=== PATIENT | female | born 1955 | race Caucasian/White ===

== ENCOUNTER → 2018-10-29 13:26 | Outpatient (CLI) | payer OTHER, SELFPAY ==
--- NOTE | 2018-10-29 13:29 | DI.RAD.S_ITS ---
PROCEDURE: XR KNEE LT 3V INDICATIONS: left knee injury TECHNIQUE: 3 views of the knee were acquired. COMPARISON: None. FINDINGS: Bones: There is a nondisplaced vertical fracture identified involving the lateral aspect of the patella. Normal positioning of the patella is evident. No additional fractures are seen. The bone mineralization is within normal limits. No suspicious osseous lesions are identified. Soft tissues: There is a very large joint effusion. Prepatellar soft tissue edema is noted. No suspicious soft tissue calcifications. IMPRESSION: 1. Nondisplaced patella fracture. 2. Prominent knee joint effusion. Dictated by: Sandoval Klein M.D. on 10/29/2018 at 13:09 Approved by: Sandoval Klein M.D. on 10/29/2018 at 13:10
== END ==
PROVIDERS: PCP Family Medicine; Visit Provider Physician Assistant
DX: S82.092A Other fracture of left patella, initial encounter for closed fracture (principal); M25.462 Effusion, left knee
CPT/HCPCS: 73562

== ENCOUNTER → 2019-01-29 08:52 | Outpatient (CLI) | payer OTHER, SELFPAY ==
[2019-01-29 11:04] LABS: Hep C Virus Ab w/Reflex Quant NEGATIVE s/c (NEGATIVE)
== END ==
DX: Z13.29 Encounter for screening for other suspected endocrine disorder (principal); Z13.228 Encounter for screening for other metabolic disorders; Z13.0 Encounter for screening for diseases of the blood and blood-forming organs and certain disorders involving the immune mechanism
CPT/HCPCS: 36415; 86803

== ENCOUNTER → 2019-03-02 15:16 | Outpatient (CLI) | payer OTHER, SELFPAY ==
--- NOTE | 2019-03-02 | DI.MG.S_ITS ---
BILATERAL DIGITAL SCREENING MAMMOGRAM 3D/2D WITH CAD: 03/02/2019 CLINICAL: Routine screening. Comparison is made to exams dated: 12/09/2016 mammogram, 11/12/2015 mammogram, and 11/01/2014 mammogram - [facility]. The tissue of both breasts is heterogeneously dense. This may lower the sensitivity of mammography. Current study was also evaluated with a Computer Aided Detection (CAD) system. No significant masses, calcifications, or other findings are seen in either breast. There has been no significant interval change. IMPRESSION: NEGATIVE There is no mammographic evidence of malignancy. A 1 year screening mammogram is recommended. This exam was interpreted at Station ID: [id number]. NOTE: For mammograms, a report in lay terms will be sent to the patient. Approximately 15% of breast malignancies will not be visualized mammographically. In the management of a palpable breast mass, a negative mammogram must not discourage biopsy of a clinically suspicious lesion. Electronically Signed By: Virginia arnold/[email or web address]:03/02/2019 16:02:48 letter sent: Normal Exam ACR BI-RADS Category 1: Negative [id number]
== END ==
PROVIDERS: Visit Provider Family Medicine
DX: Z12.31 Encounter for screening mammogram for malignant neoplasm of breast (principal)
CPT/HCPCS: 77063; 77067

== ENCOUNTER → 2021-10-25 13:04 | Outpatient (ROUT) | payer OTHER, SELFPAY ==
[2021-10-25 13:22] LABS: Appearance Urine UA CLOUDY; Bilirubin Urine UA NEGATIVE (NEGATIVE); Color Urine UA YELLOW; Glucose Urine UA NEGATIVE (Negative); Ketones Urine UA NEGATIVE (NEGATIVE); Leukocyte Esterase Urine UA 2+ (NEGATIVE); Nitrite Urine UA NEGATIVE (Negative); Occult Blood Urine UA 1+ (Negative); Protein Urine UA 1+ (Negative); Specific Gravity Urine UA 1.015 (1.000-1.035); Urobilinogen Urine UA 0.2 E.U./dL (0.2)
[2021-10-25 13:49] LABS: Amorphous Sediment Urine 1+; Bacteria Urine Few (2-10); Culture Indicated Urine Specimen Cultured; Mucus Urine 1+ (Negative); RBC Urine 1-5/HPF (0-5/HPF); Squamous Epithelial Cell Urine 0-1 /HPF (0-5/HPF); WBC Urine >100/HPF (0-5/HPF)
== END ==
PROVIDERS: PCP Registered Nurse; Visit Provider Family Medicine
DX: R31.9 Hematuria, unspecified (principal)
CPT/HCPCS: 81001; 87077; 87086; 87186

== ENCOUNTER → 2025-04-11 08:13 | Outpatient (CLI) | payer MEDICARE, SELFPAY ==
[2025-04-11 09:33] LABS: Alanine Aminotransferase 24 IU/L (<35); Albumin 4.6 g/dL (3.5-5.0); Albumin Globulin Ratio 1.7 (1.0-2.8); Alkaline Phosphatase 66 U/L (38-126); Aspartate Aminotransferase 28 IU/L (14-36); BUN Creatinine Ratio 15.2 (6-22); Bilirubin Total 0.6 mg/dL (0.2-1.3); Blood Urea Nitrogen 10 mg/dL (7-17); Calcium 9.6 mg/dL (8.4-10.2); Carbon Dioxide 26 mmol/L (22-32); Chloride 106 mmol/L (98-107); Cholesterol 237 mg/dL (140-199); Estimated Glomerular Filt Rate > 60 mL/min (>60); Globulin 2.7 g/dL (1.7-4.1); Glucose 101 mg/dL (70-99); HDL Cholesterol 86 mg/dL (40-60); HEMOLYSIS < 15 (0-50); LDL Cholesterol Calculated 140 mg/dL (<100); Potassium 4.7 mmol/L (3.4-5.1); Sodium 139 mmol/L (137-145); Total Protein 7.3 g/dL (6.3-8.2); Triglycerides 56 mg/dL (35-150)
[2025-04-11 10:36] LABS: Vitamin B12 428 pg/mL (239-931)
== END ==
DX: R00.2 Palpitations (principal); R53.83 Other fatigue
CPT/HCPCS: 36415; 80053; 80061; 82607; 82746